=== PATIENT | female | born 1970 | race American Indian/Alaskan Native ===

== ENCOUNTER 2022-02-03 20:06 | Emergency (ER) | payer SELFPAY ==
[2022-02-04] MEDS ORDERED: hydrALAZINE 25 MG TAB PO ONE (03:19)
--- NOTE | 2022-02-04 04:01 | Emergency Department Report ---
ED General Adult HPI - General Chief complaint: High BP Stated complaint: HTN Source: patient Mode of arrival: Ambulatory Limitations: No Limitations - History of Present Illness Initial comments: Patient is a 51-year-old -[place] female with a history of hypertension who presented to the ED with complaint of significantly elevated blood pressure for the last 2 weeks. Patient states that she has previously taken blood pressure medication in the past but stopped taking the medications about 3 months ago. Patient states that she decided to take herbal medications for her blood pressure. Patient states that her symptoms of uncontrolled hypertension was noticed when she went to her urgent care clinic where her blood pressure was 180 systolic. Patient states that she was advised to come to the ED for evaluation. Patient states that she was given hydrochlorothiazide 25 mg and ramipril 10 mg which she took at the time but the blood pressure has continued to be elevated. Patient denies dizziness, syncope, chest pain, headache, nausea and vomiting, shortness of breath, neck pain, change in vision, lightheadedness, palpitations, diaphoresis, back pain or numbness and tingling or weakness of upper and lower extremities bilaterally. MD Complaint: Elevated blood pressure -: Gradual, week(s) (2) Location: head Radiation: non-radiation Severity scale (0 -10): 0 Consistency: intermittent Improves with: none Worsens with: none Associated Symptoms: denies other symptoms. denies: confusion, chest pain, cough, diaphoresis, fever/chills, headaches, loss of appetite, nausea/vomiting, rash, seizure, shortness of breath, syncope, weakness Treatments Prior to Arrival: none, other (HCTZ 25 mg p.o. x1, ramipril 10 mg p.o. x1) - Related Data Previous Rx's Medication Instructions Recorded Last Taken Type Lisinopril/Hydrochlorothiazide 1 tab PO QDAY #30 tab 02/04/22 Unknown Rx [Zestoretic 20-25 mg] hydrOXYzine PAMOATE [Vistaril] 25 mg PO Q8HR PRN #30 capsule 02/04/22 Unknown Rx Allergies Allergy/AdvReac Type Severity Reaction Status Date / Time No Known Allergies Allergy Unverified 02/03/22 20:49 ED Review of Systems ROS: Stated complaint: HTN Other details as noted in HPI Constitutional: other (Elevated blood pressure). denies: chills, fever Eyes: denies: eye pain, eye discharge, vision change ENT: denies: ear pain, throat pain Respiratory: denies: cough, shortness of breath, wheezing Cardiovascular: denies: chest pain, palpitations Endocrine: no symptoms reported Gastrointestinal: denies: abdominal pain, nausea, vomiting, diarrhea Genitourinary: denies: urgency, dysuria, discharge Musculoskeletal: denies: back pain, joint swelling, arthralgia Skin: denies: rash, lesions Neurological: denies: headache, weakness, paresthesias Psychiatric: anxiety. denies: depression Hematological/Lymphatic: denies: easy bleeding, easy bruising ED Past Medical Hx - Past Medical History Previous Medical History?: Yes Hx Hypertension: Yes - Surgical History Past Surgical History?: No - Social History Smoking Status: Never Smoker Substance Use Type: None - Medications Home Medications: Home Medications Medication Instructions Recorded Confirmed Last Taken Type Lisinopril/Hydrochlorothiazide 1 tab PO QDAY #30 tab 02/04/22 Unknown Rx [Zestoretic 20-25 mg] hydrOXYzine PAMOATE [Vistaril] 25 mg PO Q8HR PRN #30 capsule 02/04/22 Unknown Rx ED Physical Exam - General Limitations: No Limitations General appearance: alert, in no apparent distress - Head Head exam: Present: atraumatic, normocephalic, normal inspection - Eye Eye exam: Present: normal appearance, PERRL, EOMI Pupils: Present: normal accommodation - ENT ENT exam: Present: normal exam, normal orophraynx, mucous membranes moist, TM's normal bilaterally, normal external ear exam - Neck Neck exam: Present: normal inspection, full ROM. Absent: tenderness, meningismus, lymphadenopathy - Respiratory Respiratory exam: Present: normal lung sounds bilaterally. Absent: respiratory distress, wheezes, rales, rhonchi, chest wall tenderness, accessory muscle use, decreased breath sounds, prolonged expiratory - Cardiovascular Cardiovascular Exam: Present: regular rate, normal rhythm, normal heart sounds. Absent: systolic murmur, diastolic murmur, rubs, gallop - GI/Abdominal GI/Abdominal exam: Present: soft, normal bowel sounds. Absent: tenderness, guarding, rebound, hyperactive bowel sounds, hypoactive bowel sounds, organomegaly - Extremities Exam Extremities exam: Present: normal inspection, full ROM, normal capillary refill. Absent: tenderness - Back Exam Back exam: Present: normal inspection, full ROM. Absent: tenderness, CVA tenderness (R), CVA tenderness (L), muscle spasm, paraspinal tenderness, vertebral tenderness - Neurological Exam Neurological exam: Present: alert, oriented X3, CN II-XII intact, normal gait, reflexes normal - Psychiatric Psychiatric exam: Present: normal affect, normal mood, anxious - Skin Skin exam: Present: warm, dry, intact, normal color. Absent: rash ED Course Vital Signs 02/03/22 20:45 Temperature 98.3 F Pulse Rate 93 H Respiratory 18 Rate Blood Pressure 191/113 O2 Sat by Pulse 97 Oximetry ED Medical Decision Making - Medical Decision Making This is a 51-year-old -[place] female with a history of hypertension who presented to the ED with complaint of significantly elevated blood pressure for the last 2 weeks. Patient states that she has previously taken blood pressure medication in the past but stopped taking the medications about 3 months ago. Patient states that she decided to take herbal medications for her blood pressure. Patient states that her symptoms of uncontrolled hypertension was noticed when she went to her urgent care clinic where her blood pressure was 180 systolic. Patient states that she was advised to come to the ED for evaluation. Patient states that she was given hydrochlorothiazide 25 mg and ramipril 10 mg which she took at the time but the blood pressure has continued to be elevated. In the ED, patient is alert and oriented x3 and is not in any distress. Patient is however anxious and hypertensive in triage. Patient was treated for blood pressure medication in the ED and observed. Patient was subsequently discharged home on blood pressure medications and advised to follow-up with her primary care physician in 7 to 10 days for reevaluation. Patient advised return to the ED immediately if symptoms get worse. - Differential Diagnosis Uncontrolled hypertension; anxiety Critical care attestation.: If time is entered above; I have spent that time in minutes in the direct care of this critically ill patient, excluding procedure time. ED Disposition Clinical Impression: Uncontrolled stage 2 hypertension, Anxiety as acute reaction to exceptional stress Disposition: 01 HOME / SELF CARE / HOMELESS Is pt being admited?: No Does the pt Need Aspirin: No Condition: Stable Instructions: Hypertension (ED), Hypertension, Adult, [id number], Generalized Anxiety Disorder, Adult Additional Instructions: Take medication with food, drink plenty of fluids, follow-up with your primary care physician in 7 to 10 days for reevaluation. Return to the ED immediately if symptoms get worse. Prescriptions: hydrOXYzine PAMOATE [Vistaril] 25 mg PO Q8HR PRN #30 capsule PRN Reason: Anxiety Lisinopril/Hydrochlorothiazide [Zestoretic 20-25 mg] 1 tab PO QDAY #30 tab Referrals: [facility] [Provider Group] - 3-5 Days Forms: Work/School Release Form(ED) Time of Disposition: 04:01 Print Language: BARBADIAN
[2022-02-04 06:14] VITALS: BP 151/92
== END 2022-02-04 06:14 | disposition home or self-care (01) ==
LOC: ED 20:06
DX: F41.1 Generalized anxiety disorder (principal); F43.0 Acute stress reaction
CPT/HCPCS: 93005; 99282